=== PATIENT | female | born 1965 ===

== ENCOUNTER 2024-01-08 05:31 | Day surgery (SDC) | payer OTHER ==
[2024-01-08] MEDS ORDERED: MIDAZOLAM HCL 2 MG/2 ML VIAL IV ONE (09:30)
[2024-01-08] MEDS ORDERED: fentaNYL CITRATE 50 MCG/ML AMPUL IV PUSH ONE (09:30)
[2024-01-08] MEDS ORDERED: ONDANSETRON HCL 2 MG/ML VIAL IV STA (09:31)
== END 2024-01-08 10:15 | disposition home or self-care (01) ==
LOC: AMB-ENDOS 05:31
PROVIDERS: ATTEND Colon & Rectal Surgery
DX: K63.5 Polyp of colon (principal)